=== PATIENT | female | born 1970 | race Caucasian/White ===

== ENCOUNTER 2017-06-12 17:26 | Emergency (ER) | payer MEDICAID, OTHER ==
[2017-06-12 17:49] VITALS: TEMP 98.6
--- NOTE | 2017-06-12 17:50 | EDPHY ---
H & P Stated Complaint: SI Source: Patient - Personal History LMP (Females 10-55): 22-28 Days Ago Current Tetanus/Diphtheria Vaccine: Yes - Medical/Surgical History Hx Asthma: No Hx Chronic Respiratory Disease: No Hx Diabetes: No Hx Cardiac Disease: No Hx Renal Disease: No Hx Cirrhosis: No Hx Alcoholism: No Hx HIV/AIDS: No Hx Splenectomy or Spleen Trauma: No Other PMH: alcohol abuse/depression/hypothyroid - Social History Smoking Status: Former smoker HPI/ROS: HPI CHIEF COMPLAINT: Suicidal ideation, depression, alcohol intoxication HISTORY OF PRESENT ILLNESS: This patient is a 46-year-old female, history of alcoholism, and has been binge drinking whiskey for the past 2 weeks. Additionally she has a history of depression. She presents emergency room with suicidal ideation. She presents by private vehicle with a friend. Upon arrival she appears clinically sober but appears depressed flat affect and suicidal. Past Medical History: History of depression, history of previous suicidal attempt, daily alcoholism Past Surgical History: No significant surgical history Social History: Daily alcohol use. Last 2 weeks. Denies drugs or tobacco. Family History: Noncontributory ROS REVIEW OF SYSTEMS: A comprehensive 10 point review of systems is otherwise negative aside from elements mentioned in the history of present illness. Exam Constitutional depressed, flat affect, triage nursing summary reviewed, vital signs reviewed, awake/alert. Eyes normal conjunctivae and sclera, EOMI, PERRLA. HENT normal inspection, atraumatic, moist mucus membranes, no epistaxis, neck supple/ no meningismus, no raccoon eyes. Respiratory clear to auscultation bilaterally, normal breath sounds, no respiratory distress, no wheezing. Cardiovascular rate normal, regular rhythm, no murmur, no edema, distal pulses normal. Gastrointestinal soft, non-tender, no rebound, no guarding, normal bowel sounds, no distension, no pulsatile mass. Genitourinary no CVA tenderness. Musculoskeletal no midline vertebral tenderness, full range of motion, no calf swelling, no tenderness of extremities, no meningismus, good pulses, neurovascularly intact. Skin pink, warm, & dry, no rash, skin atraumatic. Neurologic awake, alert and oriented x 3, AAOx3, moves all 4 extremities equally, motor intact, sensory intact, CN II-XII intact, normal cerebellar, normal vision, normal speech. Psychiatric depressed, flat affect, suicidal Heme/Lymph/Immune no lymphadenopathy. Differential Diagnosis: Includes but is not limited to in a particular order acute depression, suicidal ideation, alcohol intoxication, alcoholism Medical Decision Making: Plan for this patient patient placed on M1 hold for suicidal ideation. She will need medical clearance blood draw. She will need mental health evaluation. Re-evaluation: 2149: Patient's alcohol level 334. Patient will need to metabolize her alcohol that have a mental health evaluation for suicidal ideation, depression. (Basil Romero) Constitutional: Initial Vital Signs Temperature (C) 37 C 06/12/17 17:47 Heart Rate 91 06/12/17 17:47 Respiratory Rate 17 06/12/17 17:47 Blood Pressure 123/83 H 06/12/17 17:47 O2 Sat (%) 93 06/12/17 17:47 O2 Delivery Mode Room Air Allergies/Adverse Reactions: No Known Allergies Allergy (Verified 06/12/17 17:46) Home Medications: Medication Instructions Recorded Citalopram [CeleXA 20 MG] 60 mg PO DAILY #90 tab 12/02/15 ARMOUR THYROID 06/12/17 Progesterone 06/12/17 Medical Decision Making Other Provider: 2300 care assumed by me pending mental health evaluation. 0330 patient seen by mental health test engine evaluator, dated. He is discussed with Dr. kraft. Patient is not clinically sober. She is mary alice for safety. She has no suicidal ideation at this time. Plan will be for outpatient treatment. She will follow up with [facility]. She will also contract for 90 days and 90 meetings. Will discharge her with of [facility] for withdrawal symptoms, she will return for any concerns. (Mika Pearson) - Data Points Laboratory Results: Laboratory Results 06/12/17 18:03 06/12/17 18:03 06/12/17 06/12/17 06/12/17 18:03 18:03 18:03 WBC RBC Hgb Hct MCV MCH MCHC RDW Plt Count MPV Neut % (Auto) Lymph % (Auto) [place] % (Auto) Eos % (Auto) Baso % (Auto) Nucleat RBC Rel Count Absolute Neuts (auto) Absolute Lymphs (auto) Absolute Monos (auto) Absolute Eos (auto) Absolute Basos (auto) Absolute Nucleated RBC Immature Gran % Immature Gran # Sodium 146 mEq/L H mEq/L (135-145) Potassium 4.8 mEq/L mEq/L (3.5-5.2) Chloride 109 mEq/L mEq/L (97-110) Carbon Dioxide 18 mEq/l L mEq/l (22-31) Anion Gap 19 mEq/L H mEq/L (8-16) BUN 17 mg/dL mg/dL (7-23) Creatinine 0.9 mg/dL mg/dL (0.6-1.0) Estimated GFR > 60 Glucose 106 mg/dL H mg/dL (70-100) Calcium 9.0 mg/dL mg/dL (8.5-10.4) Beta HCG, Qual NEGATIVE Urine Opiates Screen NEGATIVE (NEGATIVE) Urine Barbiturates NEGATIVE (NEGATIVE) Ur Phencyclidine Scrn NEGATIVE (NEGATIVE) Ur Amphetamine Screen NEGATIVE (NEGATIVE) U Benzodiazepines Scrn NEGATIVE (NEGATIVE) Urine Cocaine Screen NEGATIVE (NEGATIVE) U Marijuana (THC) Screen NEGATIVE (NEGATIVE) Ethyl Alcohol 334 mg/dL H mg/dL (0-10) 06/12/17 18:03 WBC 9.38 10^3/uL 10^3/uL (3.80-9.50) RBC 4.38 10^6/uL 10^6/uL (4.18-5.33) Hgb 13.8 g/dL g/dL (12.6-16.3) Hct 39.6 % % (38.0-47.0) MCV 90.4 fL fL (81.5-99.8) MCH 31.5 pg pg (27.9-34.1) MCHC 34.8 g/dL g/dL (32.4-36.7) RDW 15.0 % % (11.5-15.2) Plt Count 299 10^3/uL 10^3/uL (150-400) MPV 8.6 fL L fL (8.7-11.7) Neut % (Auto) 62.0 % % (39.3-74.2) Lymph % (Auto) 28.9 % % (15.0-45.0) [place] % (Auto) 6.9 % % (4.5-13.0) Eos % (Auto) 0.5 % L % (0.6-7.6) Baso % (Auto) 1.1 % % (0.3-1.7) Nucleat RBC Rel Count 0.0 % % (0.0-0.2) Absolute Neuts (auto) 5.81 10^3/uL 10^3/uL (1.70-6.50) Absolute Lymphs (auto) 2.71 10^3/uL 10^3/uL (1.00-3.00) Absolute Monos (auto) 0.65 10^3/uL 10^3/uL (0.30-0.80) Absolute Eos (auto) 0.05 10^3/uL 10^3/uL (0.03-0.40) Absolute Basos (auto) 0.10 10^3/uL 10^3/uL (0.02-0.10) Absolute Nucleated RBC 0.00 10^3/uL 10^3/uL (0-0.01) Immature Gran % 0.6 % % (0.0-1.1) Immature Gran # 0.06 10^3/uL 10^3/uL (0.00-0.10) Sodium Potassium Chloride Carbon Dioxide Anion Gap BUN Creatinine Estimated GFR Glucose Calcium Beta HCG, Qual Urine Opiates Screen Urine Barbiturates Ur Phencyclidine Scrn Ur Amphetamine Screen U Benzodiazepines Scrn Urine Cocaine Screen U Marijuana (THC) Screen Ethyl Alcohol Medications Given: Lorazepam (Ativan) 0 mg PO Q4H PRN; Protocol PRN Reason: Alcohol Withdrawal w/IV access Stop: 06/13/17 10:41 Last Admin: 06/13/17 01:57 Dose: 1 mg Discontinued Medications Lorazepam (Ativan) 1 mg PO ONCE ONE Stop: 06/12/17 19:14 Last Admin: 06/12/17 19:26 Dose: 1 mg Lorazepam (Ativan) 1 mg PO ONCE ONE Stop: 06/12/17 22:40 Last Admin: 06/12/17 22:41 Dose: 1 mg Departure - Departure Disposition: Home, Routine, Self-Care Clinical Impression: Alcohol intoxication, Depression Condition: Fair Instructions: Alcohol Dependence (ED), Alcohol Intoxication (ED), Alcohol Withdrawal (ED), Depression (ED), Chlordiazepoxide (By mouth) Additional Instructions: Follow up with your mental health providers in the next 1-2 days. Make sure you continue 10 and AA meetings regularly. Return emergency depart for any worsening depression, suicidal thoughts, tremors , hallucinations, or any other concerns. Referrals: [facility],. [Clinic] - As per Instructions
[2017-06-12 18:14] LABS: PLATELET COUNT 299 10^3/uL (150-400)
[2017-06-12] MEDS ORDERED: LORazepam 1 MG TAB PO ONE ×2 (19:13→22:39)
[2017-06-12] MEDS ORDERED: LORazepam 2 MG/ML INJ IVP PRN (22:41)
[2017-06-12] MEDS ORDERED: LORazepam 1 MG TAB PO PRN (22:41)
[2017-06-13 03:28] VITALS: BP 128/76; PULSE 84; RESP 16; O2SAT 94
[2017-06-13] MEDS ORDERED: CHLORDIAZEPOXIDE 25MG PREPK#6 BTL TAKEHOME ONE (03:40)
== END 2017-06-13 04:00 | disposition home or self-care (01) ==
DX: F32.9 Major depressive disorder, single episode, unspecified (principal); F10.129 Alcohol abuse with intoxication, unspecified; Z87.891 Personal history of nicotine dependence
CPT/HCPCS: 80305; G0480

== ENCOUNTER 2017-08-19 15:02 | Emergency (ER) | payer OTHER, MEDICAID ==
[2017-08-19 15:40] LABS: PLATELET COUNT 368 10^3/uL (150-400)
--- NOTE | 2017-08-19 15:59 | EDPHY ---
General - History Smoking Status: Former smoker Time Seen by Provider: 08/19/17 15:07 Narrative: CHIEF COMPLAINT: M1, depression, suicidal HISTORY OF PRESENT ILLNESS: Patient presents by [facility] on an M1 hold. This is for depression and suicidal ideation. Patient expresses severe depression and alcohol abuse and dependency. She says "I'm done with it all." She admits to wanting to kill herself. She had a plan of cutting herself but says she did not have anything sharp knife. She says she has history of alcohol dependency. She was sober for 3 months until May, and has now been drinking 10-12 alcoholic drinks per day. She wants to at this point and does not want any intervention. She denies primary care physician. Denies psychiatrist. Denies any attempt to be seen by mental health professional. She does have previous suicide attempt and ongoing alcohol depression. No other associated complaints or modifying factors. PSYCHIATRIC DIAGNOSES: Depression, alcohol abuse and dependency PRIOR PSYCHIATRIC EVALUATIONS: Remotely M1/DETAINER: [facility] today, just prior to arrival REVIEW OF SYSTEMS: Ten systems reviewed and are negative unless otherwise noted in the HPI EXAMINATION General Appearance: Alert, no distress, tearful Head: normocephalic, atraumatic Eyes: Pupils equal and round, no conjunctival pallor or injection ENT, Mouth: Mucous membranes moist Neck: Normal inspection, supple, non-tender Respiratory: Lungs are clear to auscultation Cardiovascular: Regular rate and rhythm no murmur. Gastrointestinal: Abdomen is soft and nontender Back: non-tender, no bony abnormalities Neurological: A&O, nonfocal, normal gait. GCS 15. No tremor. Strength symmetric. No pronator drift. Skin: Warm and dry, no rash. Superficial laceration to the left anterior forearm. No distraction. No depth. No need for suture repair. No foreign body. No signs of infection Extremities: Nontender, no pedal edema. Symmetric range of motion. Psychiatric: Depressed mood and flat affect. Admits suicidal ideation with plan of cutting. Admits to alcohol dependency with last alcohol drink intake earlier today. DIFFERENTIAL DIAGNOSES: Including but not limited to acute alcohol intoxication, alcohol withdrawal, depression, suicidal ideation, dysthymia, hypothyroid MDM: 3:30 p.m. Suicidal ideation from increasing depression alcohol dependency. The patient states that she is "done with it." She denies wanting any help intervention. She says that she would of caught herself if she has something sharp enough. She self presented to [facility] and they brought her here on an M1 hold. She is cooperative thus far. Superficial lacerations to the left anterior forearm that do not require intervention or care. Tetanus up-to- date. 3:50 p.m. At this time she is medically cleared but her blood alcohol level is 271. She will require monitoring. Before she will be evaluated. 4:20 p.m. At this time I have discussed the case with Dr. Cameron. She will assume care the patient at this time. The patient is pending medical evaluation. She has been cleared medically but will not be evaluated until her blood alcohol level is lower. SUPERVISION: Patient was independently examined, but I discussed the case with my secondary supervising physician Dr. Cameron ([facility]) The patient was evaluated and managed by the physician learning and development assistant. I have reviewed this chart and I agree with the findings and plan of care as documented , as indicated by my signature. I am the secondary supervising physician. ( Deborah Cameron) 2:15 a.m.- The patient was given a dose of Ativan for mild alcohol withdrawal symptoms. She was otherwise stable throughout my shift with normal vital signs. She was evaluated by the mental health worker stella and was recommended for a dual diagnosis unit. She was accepted at [facility] by Dr. Francis and I have completed the EMTALA form. (Gayle Clancy) - Objective Vital Signs: Initial Vital Signs Temperature (C) 36.9 C 08/19/17 15:14 Heart Rate 87 08/19/17 15:14 Respiratory Rate 18 08/19/17 15:14 Blood Pressure 111/75 08/19/17 15:14 O2 Sat (%) 96 08/19/17 15:14 O2 Delivery Mode Room Air Allergies/Adverse Reactions: No Known Allergies Allergy (Verified 06/12/17 17:46) Home Medications: Medication Instructions Recorded Citalopram [CeleXA 20 MG] 60 mg PO DAILY #90 tab 12/02/15 ARMOUR THYROID 06/12/17 Progesterone 06/12/17 Laboratory Results: Laboratory Results 08/19/17 15:30 08/19/17 15:30 03/08/19/17 08/19/17 15:40 15:30 15:30 WBC RBC Hgb Hct MCV MCH MCHC RDW Plt Count MPV Neut % (Auto) Lymph % (Auto) [place] % (Auto) Eos % (Auto) Baso % (Auto) Nucleat RBC Rel Count Absolute Neuts (auto) Absolute Lymphs (auto) Absolute Monos (auto) Absolute Eos (auto) Absolute Basos (auto) Absolute Nucleated RBC Immature Gran % Immature Gran # Sodium 138 mEq/L mEq/L (135-145) Potassium 4.1 mEq/L mEq/L (3.5-5.2) Chloride 101 mEq/L mEq/L (97-110) Carbon Dioxide 24 mEq/l mEq/l (22-31) Anion Gap 13 mEq/L mEq/L (8-16) BUN 6 mg/dL L mg/dL (7-23) Creatinine 0.7 mg/dL mg/dL (0.6-1.0) Estimated GFR > 60 Glucose 121 mg/dL H mg/dL (70-100) Calcium 8.4 mg/dL L mg/dL (8.5-10.4) TSH 0.786 uIU/mL uIU/mL (0.465-4.680) Beta HCG, Qual NEGATIVE Urine Opiates Screen NEGATIVE (NEGATIVE) Urine Barbiturates NEGATIVE (NEGATIVE) Ur Phencyclidine Scrn NEGATIVE (NEGATIVE) Ur Amphetamine Screen NEGATIVE (NEGATIVE) U Benzodiazepines Scrn NEGATIVE (NEGATIVE) Urine Cocaine Screen NEGATIVE (NEGATIVE) U Marijuana (THC) Screen NON-NEGATIVE H (NEGATIVE) Ethyl Alcohol 271 mg/dL H mg/dL (0-10) 08/19/17 15:30 WBC 6.57 10^3/uL 10^3/uL (3.80-9.50) RBC 4.71 10^6/uL 10^6/uL (4.18-5.33) Hgb 15.0 g/dL g/dL (12.6-16.3) Hct 42.9 % % (38.0-47.0) MCV 91.1 fL fL (81.5-99.8) MCH 31.8 pg pg (27.9-34.1) MCHC 35.0 g/dL g/dL (32.4-36.7) RDW 13.8 % % (11.5-15.2) Plt Count 368 10^3/uL 10^3/uL (150-400) MPV 8.2 fL L fL (8.7-11.7) Neut % (Auto) 62.9 % % (39.3-74.2) Lymph % (Auto) 23.6 % % (15.0-45.0) [place] % (Auto) 10.2 % % (4.5-13.0) Eos % (Auto) 1.5 % % (0.6-7.6) Baso % (Auto) 1.2 % % (0.3-1.7) Nucleat RBC Rel Count 0.0 % % (0.0-0.2) Absolute Neuts (auto) 4.13 10^3/uL 10^3/uL (1.70-6.50) Absolute Lymphs (auto) 1.55 10^3/uL 10^3/uL (1.00-3.00) Absolute Monos (auto) 0.67 10^3/uL 10^3/uL (0.30-0.80) Absolute Eos (auto) 0.10 10^3/uL 10^3/uL (0.03-0.40) Absolute Basos (auto) 0.08 10^3/uL 10^3/uL (0.02-0.10) Absolute Nucleated RBC 0.00 10^3/uL 10^3/uL (0-0.01) Immature Gran % 0.6 % % (0.0-1.1) Immature Gran # 0.04 10^3/uL 10^3/uL (0.00-0.10) Sodium Potassium Chloride Carbon Dioxide Anion Gap BUN Creatinine Estimated GFR Glucose Calcium TSH Beta HCG, Qual Urine Opiates Screen Urine Barbiturates Ur Phencyclidine Scrn Ur Amphetamine Screen U Benzodiazepines Scrn Urine Cocaine Screen U Marijuana (THC) Screen Ethyl Alcohol Medications Given: Discontinued Medications Lorazepam (Ativan) 1 mg PO EDNOW ONE Stop: 08/20/17 00:19 Last Admin: 08/20/17 00:20 Dose: 1 mg Ondansetron HCl (Zofran Odt) 4 mg PO EDNOW ONE Stop: 08/19/17 23:03 Last Admin: 08/19/17 23:04 Dose: 4 mg Departure - Departure Disposition: Other Psych, Not Laura Clinical Impression: Suicidal ideation, Alcoholism, Severe major depression Condition: Fair Referrals: NONE *PRIMARY CARE P,. [Primary Care Provider] - As per Instructions
[2017-08-19] MEDS ORDERED: ONDANSETRON DISINTEGRATING 4 MG TAB PO ONE (23:02)
[2017-08-19 23:19] VITALS: BP 122/89
[2017-08-20] MEDS ORDERED: LORazepam 1 MG TAB PO ONE (00:18)
== END 2017-08-20 03:55 ==
DX: R45.851 Suicidal ideations (principal); F32.2 Major depressive disorder, single episode, severe without psychotic features; F10.20 Alcohol dependence, uncomplicated; Z87.891 Personal history of nicotine dependence
CPT/HCPCS: 80305; G0480